=== PATIENT | female | born 1995 | race African-American/Black ===

== ENCOUNTER 2017-07-26 10:52 | Emergency (ER) | payer OTHER ==
[~2017-07-26] VITALS: Ht 154.9 cm; Wt 60.4 kg
[2017-07-26 11:34] LABS: HEMATOCRIT 40.9 % (36.0-46.0); HEMOGLOBIN 12.9 G/DL (11.9-15.5); MCH 23.7 PG (29.0-34.0); MCHC 31.5 G/DL (30.0-36.0); MCV 75.2 FL (83-99); PLATELET COUNT 274 K/uL (156-360); RBC DIS.WIDTH-CV 14.1 % (11.8-14.6); RBC DIS.WIDTH-SD 37.1 % (39-53); RED BLOOD COUNT 5.44 M/uL (3.80-5.20); WHITE BLOOD COUNT 9.5 K/uL (4.1-10.2)
[2017-07-26 11:43] LABS: ALBUMIN 3.9 g/dL (3.2-4.8); CHLORIDE 105 mEq/L (99-109); POTASSIUM 4.1 mEq/L (3.7-5.4); SODIUM 136 mEq/L (136-147)
[2017-07-26 11:46] LABS: GLUCOSE 141 mg/dL (70-99); TOTAL PROTEIN 7.6 g/dL (6.4-8.3)
[2017-07-26 11:48] LABS: TOTAL BILIRUBIN 0.7 mg/dL (0.0-1.0)
[2017-07-26 11:49] LABS: ALKALINE PHOSPHATASE 55 IU/L (3-129); CREATININE 0.8 mg/dL (0.6-1.3)
[2017-07-26 11:50] LABS: UREA NITROGEN (BUN) 19 mg/dL (9-23)
[2017-07-26 11:51] LABS: AST (GOT) 11 IU/L (2-34)
[2017-07-26 11:52] LABS: ALT (GPT) 11 IU/L (3-49)
[2017-07-26 11:55] LABS: GFR ESTIMATE (CALCULATED) > 59 mL/min/
[2017-07-26 12:16] LABS: QUANTITATIVE HCG 64538.9 MIU/ML
[2017-07-26 12:28] LABS: LIPASE 13 U/L (1.0-51.0)
[2017-07-26 13:02] LABS: APPEARANCE SL.HAZY ((CLEAR)); BILIRUBIN NEGATIVE; BLOOD NEGATIVE; COLOR YELLOW ((YELLOW)); GLUCOSE (STRIP) 50; KETONES NEGATIVE; LEUKOCYTES NEGATIVE; NITRITE NEGATIVE; PROTEIN (STRIP) 30; SPECIFIC GRAVITY 1.031 (1.000-1.030); UROBILINOGEN 0.2 MG/DL (0.2-1.0)
[2017-07-26 13:08] LABS: BACTERIA RARE /HPF; EPITHELIAL CELLS RARE /HPF; HYALINE CASTS 0-5 /LPF; MUCUS 1+ /LPF; RED BLOOD CELLS 0-5 /HPF (0-5); UCUL ADDED? NO; WHITE BLOOD CELLS 0-5 /HPF (0-5)
[2017-07-26] MEDS ORDERED: ZOFRAN ODT4 MG PO (13:20)
[2017-07-26 13:52] VITALS: BP 130/78
== END 2017-07-26 13:53 | disposition home or self-care (01) ==
LOC: EME 10:52
DX: O21.9 Vomiting of pregnancy, unspecified (principal); O99.281 Endocrine, nutritional and metabolic diseases complicating pregnancy, first trimester; E86.0 Dehydration; R19.7 Diarrhea, unspecified; R10.10 Upper abdominal pain, unspecified
CPT/HCPCS: 80053; 81003; 83690; 84702; 85027; 99281; 99284; J2405; J7030